=== PATIENT | female | born 1995 | race Caucasian/White ===

== ENCOUNTER 2017-03-01 11:41 | Emergency (ER) | payer OTHER ==
[~2017-03-01] VITALS: Ht 152.4 cm; Wt 65.9 kg
[~2017-03-01 11:41] MED LIST: BIRTH CONTROL PILL PO; DOCU-143 PO; IBUP-1773 PO; OXYC-197 PO
[2017-03-01 12:16] LABS: BILIRUBIN,URINE NEGATIVE (NEGATIVE); KETONES,URINE NEGATIVE (NEGATIVE); LEUKOCYTE ESTERASE ,URINE 1+ (NEGATIVE); NITRITE,URINE NEGATIVE (NEGATIVE); PH,URINE 6 (5-9); PROTEIN,URINE NEGATIVE (NEGATIVE); UROBILINOGEN,URINE NORMAL (NORMAL)
--- NOTE | 2017-03-01 12:29 | ED Abdominal Pain ---
General Chief Complaint: -Female Stated Complaint: ABD PAIN Nursing Triage Note: Patient reports cramping for a few days, reports she feels she is sitting on something and believe the pain is coming from her IUD. patient reports she wants to have it removed and has an appt to do so next sunday Sepsis Screen: No Definite Risk History of Present Illness Time Seen By Provider: 12:10 Initial Comments Patient reports having an IUD placed in [place] [address] Mishra. Over the last month she has been noticing cramping and abdominal pain. She feels that when she is sitting there is pressure. She reports the pain is suprapubic. She denies any recent discharge. Since having the IUD placed she's had approximately 5 new sexual partners. She was treated for Chlamydia at the [facility]. She has not used condoms on a regular basis, but does report using condoms since treatment for Chlamydia Oct 2016. Education was given with regards to the importance for using a condom with an IUD in place. She does report some nausea, denies vomiting or diarrhea. Timing/Duration: 1 Week, Intermittent Severity/Quality: Moderate Location: Suprapubic Radiation: No Radiation Modifying Factors: Improves With Lying down, Improves With Resting Associated Symptoms: Denies Symptoms, No Back Pain, No Chest Pain, No Diaphoresis, No Fever/Chills, No Fatigue, Nausea/Vomiting, No Syncope, No Weakness Allergies and Home Medications Allergies Coded Allergies: hydrocodone (Verified Allergy, Intermediate, NAUSEA, 03/29/16) Home Medications Ciprofloxacin HCl 500 Mg Tablet, 500 MG PO Q12H, #6 Ref 0 Prescribed by: ANDREW URBINA on 03/01/17 1246 Phenazopyridine HCl 200 Mg Tablet, 1 TAB PO TID PRN for pain, #6 Ref 0 Prescribed by: ANDREW URBINA on 03/01/17 1246 Review of Systems Constitutional: no symptoms reported, see HPI EENTM: No Symptoms Reported, See HPI Respiratory: No Symptoms Reported, See HPI Cardiovascular: No Symptoms Reported, See HPI Gastrointestinal: See HPI, Abdominal Pain (suprapubic), Denies Constipated, Denies Diarrhea, Nausea, Denies Poor Appetite, Denies Vomiting Genitourinary: No Symptoms Reported, See HPI, Denies Frequency, Denies Hematuria Musculoskeletal: no symptoms reported, see HPI Skin: no symptoms reported, see HPI Psychiatric/Neurological: No Symptoms Reported, See HPI Endocrine: No Symptoms Reported, See HPI Hematologic/Lymphatic: No Symptoms Reported, See HPI All Other Systems Reviewed Negative Unless Noted: Yes Past [id number] Hx Patient Social History Alcohol Use: Occasionally Uses Recreational Drug Use: No Smoking Status: Never a Smoker Recent Foreign Travel: No Contact w/Someone Who Travel: No Recent Infectious Disease Expo: No Recent Hopitalizations: No Surgeries HX Surgeries: Yes (WISDOM TEETH) Respiratory Hx Respiratory Disorders: No Cardiovascular Hx Cardiac Disorders: No Neurological Hx Neurological Disorders: No Reproductive System Hx Reproductive Disorders: Yes (PELVIC PAIN) Sexually Transmitted Disease: No HIV/AIDS: No Female Reproductive Disorders: Endometriosis Genitourinary Hx Genitourinary Disorders: No Gastrointestinal Hx Gastrointestinal Disorders: No Musculoskeletal Hx Musculoskeletal Disorders: No Endocrine Hx Endocrine Disorders: No HEENT HX ENT Disorders: No Loss of Vision: Denies Hearing Impairment: Denies Cancer Hx Cancer: No Psychosocial Hx Psychiatric Problems: No Integumentary HX Skin/Integumentary Disorder: No Blood Transfusions Hx Blood Disorders: No Adverse Reaction to a Blood Tr: No (N/A) Reviewed Nursing Assessment Reviewed/Agree w Nursing PMH: Yes Physical Exam Vital Signs VS - Last 72 Hours, by Label 03/01/17 03/01/17 11:49 12:49 Temp 97.5 Pulse 62 60 Resp 18 16 B/P (MAP) 114/64 Pulse Ox 98 99 O2 Delivery Room Air Capillary Refill : Less Than 3 Seconds General Appearance: WD/WN, no apparent distress HEENT: PERRL/EOMI, normal ENT inspection, TMs normal, pharynx normal Neck: full range of motion, supple, normal inspection Respiratory: chest non-tender, lungs clear, normal breath sounds Cardiovascular: normal peripheral pulses, regular rate, rhythm, no murmur Gastrointestinal: normal bowel sounds, soft, No distended, No guarding, tenderness (suprapubic) Extremities: normal range of motion, non-tender, normal inspection, no pedal edema, no calf tenderness, normal capillary refill Neurologic/Psychiatric: no motor/sensory deficits, alert, normal mood/affect, oriented x 3 Skin: normal color, warm/dry Progress/Results/Core Measures Results/Orders Lab Results Laboratory Tests Test 03/01/17 12:05 Range/Units Urine Color YELLOW Urine Clarity CLEAR Urine pH 6 5-9 Urine Specific [place] 1.020 1.016-1.022 Urine Protein NEGATIVE NEGATIVE Urine Glucose (UA) NEGATIVE NEGATIVE Urine Ketones NEGATIVE NEGATIVE Urine Nitrite NEGATIVE NEGATIVE Urine Bilirubin NEGATIVE NEGATIVE Urine Urobilinogen NORMAL NORMAL MG/DL Urine Leukocyte Esterase 1+ H NEGATIVE Urine RBC (Auto) 2+ H NEGATIVE Urine RBC 2-5 H /HPF Urine WBC 2-5 /HPF Urine Squamous Epithelial Cells 5-10 /HPF Urine Crystals NONE /LPF Urine Bacteria FEW H /HPF Urine Casts NONE /LPF Urine Mucus SMALL H /LPF Urine Culture Indicated YES My Orders Orders - ANDREW URBINAP Ua Culture If Indicated (03/01/17 12:06) Urine Bedside (03/01/17 12:06) Urine Culture (03/01/17 12:05) Vital Signs/I&O Vital Sign - Last 12Hours 03/01/17 03/01/17 11:49 12:49 Temp 97.5 Pulse 62 60 Resp 18 16 B/P (MAP) 114/64 Pulse Ox 98 99 O2 Delivery Room Air Blood Pressure Mean: 81 Progress Note : Time: 12:10 Progress Note Will obtain UA and Urine HCG. Discussed with Dr. Mishra's office nurse, the patient does have an appointment scheduled for 03/09/17. They do not have any openings to see her sooner. Dr. Gomez will not be back to [facility] for 1 month, he was there yesterday. Discussed with Dr. Canseco, gave the option to remove the IUD by him. She agreed with this treatment plan. 1230 patient's UA showed 1+ leukocyte Estrace, 2+ RBCs, 2-5 urine WBCs, small urine mucus, negative nitrites, negative ketones. Discussed UA results with Dr. Au, in light of this he recommended treatment for the UTI prior to removal of the IUD. This was discussed with the patient and she agreed with this treatment plan. Departure Impression Impression: Primary Impression: Urinary tract infection Qualified Codes: N30.01 - Acute cystitis with hematuria Additional Impression: Abdominal pain Qualified Codes: R10.30 - Lower abdominal pain, unspecified Disposition: HOME, SELF-CARE Condition: Stable Departure-Patient Inst. Referrals: NO,LOCAL PHYSICIAN (PCP/Family) Primary Care Physician Patient Instructions: Intrauterine Devices (IUD), Urinary Tract Infection, Adult (DC) Add. Discharge Instructions: All discharge instructions reviewed with patient and/or family. Voiced understanding. Keep appointment with Dr. Mishra for next week. Take all antibiotics as prescribed for urinary tract infection. Return to emergency department for fever, increased abdominal pain, vaginal discharge or bleeding, or any new concerns. Call Dr. Mishra's office, if symptoms worsen, for consideration of earlier follow up. Ibuprofen 600 mg every 8 hours as needed for cramping. Increase water intake, avoid frequently, drink 1 cup of cranberry juice or eat one cup of blueberries daily. Scripts Ciprofloxacin HCl (Cipro) 500 Mg Tablet 500 MG PO Q12H, #6 TAB 0 Refills Prov: ANDREW URBINA 03/01/17 Phenazopyridine HCl (Pyridium) 200 Mg Tablet 1 TAB PO TID Y for pain, #6 TAB 0 Refills Prov: ANDREW URBINA 03/01/17 Copy Copies To 1: HERSON MISHRA MD Copies To 2: AIME CEDILLO MD, AMY ARNP Mar 01, 2017 12:29
[2017-03-01] MEDS ORDERED: CIPR-225 PO (12:46)
[2017-03-01] MEDS ORDERED: PHEN-640 PO (12:46)
[2017-03-01 12:49] VITALS: BP 124/62
== END 2017-03-01 12:49 | disposition home or self-care (01) ==
LOC: EDUNIT# 11:41 → ER 11:44
DX: R10.30 Lower abdominal pain, unspecified (principal); N30.91 Cystitis, unspecified with hematuria; Z97.5 Presence of (intrauterine) contraceptive device
CPT/HCPCS: 81000; 84703; 87088; 99282